=== PATIENT | male | born 1960 | race Caucasian/White ===

== ENCOUNTER 2019-11-21 10:35 | Outpatient (CLI) | payer BC, SELFPAY ==
--- NOTE | 2019-11-21 10:47 | XR_ITS ---
WS: [id number] PROCEDURE: XR chest 2V* [id number] CLINICAL INFORMATION: INFLUENZA VIRUS, PNEUMONIA COMPARISON: FINDINGS: Heart: Cardiomegaly. Lungs: Lungs are clear. No consolidation or pleural fluid. Bones: Normal visualized bony structures. Cholecystectomy clips. XR/XR chest 2V* [id number] IMPRESSION: 1. Stable cardiomegaly. 2. No acute pulmonary infiltrates. 3. No acute chest findings.
== END 2019-11-21 10:36 | disposition home or self-care (01) ==
LOC: RADWPI 10:43
PROVIDERS: Family Provider Family Medicine; PCP Family Medicine; Visit Provider Electrodiagnostic Medicine
DX: J09.X1 Influenza due to identified novel influenza A virus with pneumonia (principal); I51.7 Cardiomegaly
CPT/HCPCS: 71046

== ENCOUNTER 2020-03-18 13:05 | Outpatient (CLI) | payer BC, SELFPAY | END 2020-03-18 13:06 | disposition home or self-care (01) | LOC: WOUND 13:05 | PROVIDERS: Family Provider Family Medicine; PCP Family Medicine; Visit Provider Nurse Practitioner Family | DX: L08.9 Local infection of the skin and subcutaneous tissue, unspecified (principal); L97.512 Non-pressure chronic ulcer of other part of right foot with fat layer exposed | CPT/HCPCS: 11042; 11045; G0463 ==

== ENCOUNTER 2020-03-25 14:03 | Outpatient (CLI) | payer BC, SELFPAY | END 2020-03-25 14:04 | disposition home or self-care (01) | LOC: WOUND 14:04 | PROVIDERS: Family Provider Family Medicine; PCP Family Medicine; Visit Provider Nurse Practitioner Family | DX: L08.9 Local infection of the skin and subcutaneous tissue, unspecified (principal); L97.512 Non-pressure chronic ulcer of other part of right foot with fat layer exposed | CPT/HCPCS: 11042; 11045 ==

== ENCOUNTER 2020-04-01 14:11 | Outpatient (CLI) | payer BC, SELFPAY | END 2020-04-01 14:12 | disposition home or self-care (01) | LOC: WOUND 14:12 | PROVIDERS: Family Provider Family Medicine; PCP Family Medicine; Visit Provider Thoracic Surgery (Cardiothoracic Vascular Surgery) | DX: I96 Gangrene, not elsewhere classified (principal); L97.512 Non-pressure chronic ulcer of other part of right foot with fat layer exposed; L08.9 Local infection of the skin and subcutaneous tissue, unspecified | CPT/HCPCS: 11042; J2001 ==

== ENCOUNTER 2020-04-08 14:54 | Outpatient (CLI) | payer BC, SELFPAY | END 2020-04-08 14:55 | disposition home or self-care (01) | LOC: WOUND 14:57 | PROVIDERS: Family Provider Family Medicine; PCP Family Medicine; Visit Provider Thoracic Surgery (Cardiothoracic Vascular Surgery) | DX: L97.512 Non-pressure chronic ulcer of other part of right foot with fat layer exposed (principal) | CPT/HCPCS: 11042 ==

== ENCOUNTER → 2020-08-13 09:04 | Outpatient (BNVA) | payer BC, SELFPAY | PROVIDERS: Family Provider Family Medicine; PCP Family Medicine; Visit Provider Urology | DX: R97.20 Elevated prostate specific antigen [PSA] (principal); N41.9 Inflammatory disease of prostate, unspecified; N52.9 Male erectile dysfunction, unspecified | CPT/HCPCS: 81001; 84153 ==

== ENCOUNTER → 2020-10-20 09:18 | Outpatient (BNVA) | payer BC, SELFPAY | PROVIDERS: Family Provider Family Medicine; PCP Family Medicine; Visit Provider Urology | DX: K62.89 Other specified diseases of anus and rectum (principal) | CPT/HCPCS: 81003 ==

== ENCOUNTER → 2021-07-08 07:52 | Outpatient (BNVA) | payer OTHER, SELFPAY | PROVIDERS: Family Provider Family Medicine; PCP Family Medicine; Visit Provider Urology | DX: R97.20 Elevated prostate specific antigen [PSA] (principal) | CPT/HCPCS: 81003; 84153 ==

== ENCOUNTER 2021-09-07 13:06 | Outpatient (CLI) | payer OTHER, SELFPAY ==
[2021-09-07 13:26] VITALS: BP 144/91; PULSE 91; RESP 17; TEMP 36.7; O2SAT 94; BMI 31.5
[2021-09-07] MEDS: diphenhydrAMINE 50 mg/mL SDV 1mL IVP (13:38)
--- NOTE | 2021-09-07 13:55 | SUR.PREOP ---
1330-Infusion was started on patient within 2 minutes patient became red and stated he felt hot. Face was flushed and was cold when he came in. Infusion was stopped, and iv flushed. Nurse contacted ER Dr in [place], Dr Barr, explained incident and was advised to give 50mg of Benadryl, wait a bit and restart infusion. If reaction happens again, stop infusion and advise patient he will not be eligible for infusion in future.
--- NOTE | 2021-09-07 13:58 | SUR.PREOP ---
1348-infusion was restarted after administering benadryl. Vitals signs remain the same, patient appears to tolerate infusion well. No redness and states he does not feel any different in any areas. Nurse will continue to monitor closely.
[2021-09-07 14:06] VITALS: BP 133/86; PULSE 77; RESP 17; TEMP 36.7; O2SAT 97
[2021-09-07 15:03] VITALS: BP 129/84; PULSE 77; RESP 17; TEMP 36.7; O2SAT 96
== END 2021-09-07 13:07 | disposition home or self-care (01) ==
LOC: OPS 13:07
PROVIDERS: PCP Family Medicine; Visit Provider Family Medicine
DX: U07.1 COVID-19 (principal)
CPT/HCPCS: 96365; 96375; J1200

== ENCOUNTER → 2022-01-20 11:00 | Outpatient (BNVA) | payer OTHER, SELFPAY | PROVIDERS: PCP Family Medicine; Visit Provider Urology | DX: R97.20 Elevated prostate specific antigen [PSA] (principal) | CPT/HCPCS: 81003; 84153 ==

== ENCOUNTER 2024-02-19 12:17 | Emergency (ER) | payer OTHER, SELFPAY ==
[2024-02-19 12:26] VITALS: BP 142/84; PULSE 58; RESP 16; TEMP 36.4; O2SAT 95; BMI 27.2
--- NOTE | 2024-02-19 12:43 | W.ED.FALL ---
HPI - Fall General: Chief Complaint: Fall Stated Complaint: hand injury, head injury Time Seen by Provider: 02/19/24 12:35 Source: patient Mode of arrival: ambulatory Limitations: no limitations History of Present Illness: Patient is a nice 63-year-old male who presents to ED today for evaluation of a fall injury. Patient states just prior to arrival he accidentally fell off of his tractor. He states he struck his head and sustained a minor abrasion to the left frontal region. No LOC. He has no headache. He is not on anticoagulation. He has no neck or back pain. He states his main complaint is his left wrist that he feels is painful and swollen. He sustained a small laceration to his left fourth finger. Tetanus is up-to-date. He has no other injuries or complaints at this time. He has been ambulatory without difficulty or assistance since the fall. MD complaint: fall Onset (ago): hour(s) Fall from: from height (distance) (4 feet-fell from tractor ) Fall witnessed: no Place fall occurred: home Loss of consciousness: None Prolonged down time: no Symptoms prior to fall: none Context: tripped/slipped Location of injury: head Location of injury - extremities: Left: forearm and hand Severity: moderate Associated symptoms-after fall: Reports no associated symptoms; Denies abdominal pain, chest pain, headache(s), hematuria, lightheadedness or neck pain Review of Systems Eyes: Denies: change in vision, blurry vision, photophobia, eye discharge, floaters or seeing flashes ENMT: Denies: throat pain, odynophagia, ear or mastoid pain, ear discharge, nasal discharge, epistaxis or sinus pain Card: Denies: chest pain, palpitations, lightheadedness, syncope or pre-syncope Resp: Denies: dyspnea or pain on inspiration GI: Denies: abdominal pain : Denies: flank pain or hematuria Musc: Reports: joint pain (L wrist), joint swelling (L wrist) and limited range of motion (L wrist); Denies: neck pain, back pain or extremity pain Skin/Breast: Reports: other (laceration L finger, abrasion L forehead) Neuro: Denies: headache(s), numbness in extremities, weakness in extremities, sensory changes or dizziness [facility] PFSH: Medical History PUD (peptic ulcer disease) HTN (hypertension) TIA (transient ischemic attack) Prostatitis Elevated PSA Erectile dysfunction Surgical History History of extraction of renal calculus Hx of cholecystectomy H/O eye surgery S/P ureteral stent placement Family History Father , at age 95 Hypertension Mother , at age 83 Dementia Social History Smoking and tobacco/nicotine status: never used tobacco/nicotine Alcohol intake: never Substance/Drug Use: unknown Adopted: No Caregiver/support person: No Lives independently: No Household members: spouse Marital status: Current occupational status: retired Physical Exam Const: COMMON NORMALS: no acute distress, average body habitus, patient oriented x3, no limitations, healthy appearing, alert and well nourished GENERAL APPEARANCE: cooperative ORIENTATION/CONSCIOUSNESS: Yes awake, Yes oriented to person, Yes oriented to place and Yes oriented to time HENMT: COMMON NORMALS: normocephalic and TM's normal bilaterally HEAD & SCALP: normal to inspection and normocephalic; no Ryder's sign, no hematoma and no raccoon eyes HEAD IMAGES: 1. minor forehead abrasion; no hematoma FACE & SINUS: normal facial exam TYMPANIC MEMBRANE: TM's normal bilaterally MOUTH: other (no intraoral injuries noted) Eye: COMMON NORMALS: Equal, round and reactive pupils present and EOMs intact bilaterally GENERAL EYE: appearance normal, both eyes and all related structures and normal light reflex PUPIL: Yes Equal, round and reactive pupils present DIRECT OPHTHALMOSCOPY: Yes normal light reflex Neck/C-Spine: COMMON NORMALS: full ROM GENERAL: Yes normal visual inspection CERVICAL SPINE: Yes cervical ROM normal, No pain with cervical ROM, No Cervical spine tenderness, No step off deformity and No Paracervical muscle tenderness Chest: COMMONS NORMALS: normal inspection of the chest and normal palpation of entire chest wall Resp: COMMON NORMALS: normal respiratory effort and clear to auscultation bilaterally AUSCULTATION: clear to auscultation bilaterally Cardio: COMMON NORMALS: regular rate and regular rhythm RATE: regular rate RHYTHM: regular rhythm GI: COMMON NORMALS: Normal to inspection, nondistended, normoactive bowel sounds present, Soft to palpation, non-tender, No hepatosplenomegaly present and no masses INSPECTION: Yes normal to inspection and No abdominal wall ecchymosis AUSCULTATION: Yes normoactive bowel sounds PALPATION: Yes Soft to palpation and Yes No hepatosplenomegaly present Back/Pelvis: COMMON NORMALS: thoracic and lumbar spine normal to inspection, no thoracic nor lumbar tenderness and thoraco-lumbar ROM normal Extremity: GENERAL: Yes normal exam except as noted LEFT UPPER EXTREMITY: Yes wrist (TTP and edema to L distal wrist ) Left wrist: Yes ROM (limited secondary to pain) and Yes neurovascular exam (normal) and Yes hand & digits (laceration overlying palmar L DIP; full ROM) Left hand and digits: Yes ROM (normal) and Yes neurovascular exam (normal) Neuro: ALFONSO COMA SCALE: document GCS findings Alfonso coma scale eye opening: Spontaneous Alfonso coma scale verbal response: Orientated [place] coma scale motor response: Obey commands Alfonso coma scale total score: 15 COMMON NORMALS: patient oriented x3, CN's II-XII intact bilaterally, moves all extremities, no focal motor deficits, no sensory deficits noted and gait normal SENSORIUM/ORIENTATION: Yes alert, Yes oriented to person, Yes oriented to place and Yes oriented to time SPEECH: speech normal GAIT: Yes Normal gait present Skin: COMMON NORMALS: no rashes or lesions noted GENERAL SKIN EXAM: no rashes or lesions noted TRAUMA: abrasion and laceration Procedures Laceration Laceration 1: Site: hand (4th finger) Side (If applicable): left Size (cm): 1.5 Description: linear Depth: simple, single layer Local Anesthetic: lidocaine 2% (digital block) Amount of anesthesia used (mL): 3.0 Pre-repair: wound explored and irrigated extensively Skin layer closed with: nylon Size (cm): 4-0 Number of sutures: 3 Technique: simple, interrupted Course Vital Signs: Vital signs: Vital Signs Temperature 97.6 F 02/19/24 12:26 Pulse Rate 58 L 02/19/24 13:35 Respiratory Rate 18 02/19/24 13:35 Blood Pressure 135/81 02/19/24 13:35 Pulse Oximetry 96 02/19/24 13:35 Oxygen Delivery Me thod Room Air 02/19/24 13:35 MDM - Fall Medical Decision Making Patient's finger laceration was copiously irrigated and repaired as documented. XRs radiology read showing no acute fracture however on personal interpretation I believe he has a nondisplaced fracture to his distal radius. Clinically this would fit. Patient will be splinted and followed up with orthopedics. Tetanus is UTD. Lab Data Radiology Impressions Hand X-Ray 02/19/24 12:52 IMPRESSION: 1. No acute fracture or dislocation. 2. 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 Wrist X-Ray 02/19/24 12:52 IMPRESSION: 1. No acute fracture or dislocation. 2. 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 All radiology interpretation(s) finalized by discharge Discharge Plan Discharge Patient Disposition: Home Clinical Impression: Closed fracture of distal end of left radius Qualifiers: Encounter type: initial encounter Fracture morphology: unspecified fracture morphology Qualified Code(s): S52.502A - Unspecified fracture of the lower end of left radius, initial encounter for closed fracture Laceration of left ring finger Qualifiers: Encounter type: initial encounter Damage to nail status: without damage Foreign body presence: without foreign body Qualified Code(s): S61.215A - Laceration without foreign body of left ring finger without damage to nail, initial encounter Condition: Stable Prescriptions: New tramadol 50 mg tablet 50 mg PO Q6H PRN (Reason: pain) Qty: 14 0RF Discontinued hydrocodone-acetaminophen 5-325 mg tablet 1 tab PO Q4H PRN (Reason: pain) 7 Days Qty: 10 0RF No Action sulfamethoxazole-trimethoprim 800-160 mg tablet 1 tab PO BID Qty: 60 2RF mupirocin 2 % ointment 1 applic topical BID Qty: 22 0RF Rx Instructions: use with bandage changes. pantoprazole 40 mg tablet,delayed release (DR/EC) See Rx Instructions .ROUTE .COMPLEX Qty: 90 3RF Dose Instruction: TAKE 1 TABLET BY MOUTH EVERY DAY FOR STOMACH/ULCER Rx Instructions: TAKE 1 TABLET BY MOUTH EVERY DAY FOR STOMACH/ULCER lisinopril-hydrochlorothiazide 20-25 mg tablet See Rx Instructions .ROUTE .COMPLEX Qty: 90 3RF Dose Instruction: TAKE 1 TABLET BY MOUTH EVERY DAY FOR BLOOD PRESSURE Rx Instructions: TAKE 1 TABLET BY MOUTH EVERY DAY FOR BLOOD PRESSURE sildenafil 100 mg tablet See Rx Instructions .Route .COMPLEX Qty: 20 12RF Rx Instructions: 1/2 TO 1 TAB 1 hour before intercourse, on empty stomach, NO NITROGLYCERIN Discharge Orders: Discharge ED (Routine); Ordered 02/19/24 Ordered By: Donna Gordon Referrals: Andry Weston DO [Primary Care Provider] - Patient Instructions: Care For Your Stitches (ED), Laceration (DC), Wrist Fracture in Adults (ED), Finger Laceration (ED), Opioid Safety, Pain Management Activity Restrictions/Additional Instructions: As we discussed case management should reach out to you this week to help set you up with a follow-up appointment with orthopedics for your wrist fracture. Please stay in your splint at all times until this appointment. Keep wound/laceration clean with warm soap and water twice daily. Monitor for signs of infection such as redness, swelling, increased pain, or drainage. Please seek medical re-evaluation if these occur. If you received sutures today these will need to be removed (unless you were told by the provider that they are absorbable). The provider should have discussed with you the length of time until removal-7 DAYS. Ortho may be able to cut these out as well. Coding Level of Care Code ED [employer]
--- NOTE | 2024-02-19 12:52 | XRR_ITS ---
PROCEDURE INFORMATION: Exam: XR Left Hand Exam date and time: 02/19/2024 12:57 PM Age: 63 years old Clinical indication: Injury or trauma; Fall; Laceration; Hand; Left; Additional info: Fall/trauma; Lac to 4th finger TECHNIQUE: Imaging protocol: Radiologic exam of the left hand. Views: 3 or more views. COMPARISON: CR XR wrist LT min 3V* [id number] 02/19/2024 12:57 PM FINDINGS: Bones/joints: No acute fracture or dislocation. Mineralization is normal. Severe degenerative joint space narrowing, osteophytosis, and subchondral sclerosis at the 1st CMC joint. Milder triscaphe degenerative change. Mild degenerative change scattered throughout the DIP joints. Remaining joints are maintained. Soft tissues: No retained radiopaque foreign body. XR/XR hand LT min 3V* [id number] IMPRESSION: 1. No acute fracture or dislocation. 2. 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
--- NOTE | 2024-02-19 12:52 | XRR_ITS ---
PROCEDURE INFORMATION: Exam: XR Left Wrist Exam date and time: 02/19/2024 12:57 PM Age: 63 years old Clinical indication: Injury or trauma; Fall; Blunt trauma (contusions or hematomas); Wrist; Left; Additional info: Trauma/fall TECHNIQUE: Imaging protocol: Radiologic exam of the left wrist. Views: 3 or more views. COMPARISON: CR XR hand LT min 3V* [id number] 02/19/2024 12:57 PM FINDINGS: Bones/joints: No acute fracture or dislocation. Mineralization is normal. Severe degenerative joint space narrowing, osteophytosis, and subchondral sclerosis at the 1st CMC joint. Milder triscaphe degenerative change. Remaining joints are maintained. Soft tissues: Soft tissue swelling about the wrist. XR/XR wrist LT min 3V* [id number] IMPRESSION: 1. No acute fracture or dislocation. 2. 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
[2024-02-19 13:35] VITALS: BP 135/81; PULSE 58; RESP 18; O2SAT 96
[2024-02-19 14:18] VITALS: PULSE 62; O2SAT 96
--- NOTE | 2024-02-20 07:53 | DCPLANNER ---
Message sent to Ortho- Non-displaced distal radial fx
== END 2024-02-19 14:20 | disposition home or self-care (01) ==
PROVIDERS: Emergency Provider Physician Assistant; PCP Family Medicine
DX: S52.502A Unspecified fracture of the lower end of left radius, initial encounter for closed fracture (principal); S61.215A Laceration without foreign body of left ring finger without damage to nail, initial encounter; I10 Essential (primary) hypertension; Z86.73 Personal history of transient ischemic attack (TIA), and cerebral infarction without residual deficits; V84.4XXA Person injured while boarding or alighting from special agricultural vehicle, initial encounter; S00.81XA Abrasion of other part of head, initial encounter
CPT/HCPCS: 12001; 73110; 73130; 99283

== ENCOUNTER 2024-02-23 06:00 | Outpatient (CLI) | payer OTHER, SELFPAY | END 2024-02-23 23:59 | disposition home or self-care (01) | LOC: SOT 02-26 07:59 | PROVIDERS: PCP Family Medicine; Visit Provider Specialist | DX: Z46.89 Encounter for fitting and adjustment of other specified devices (principal); S52.502D Unspecified fracture of the lower end of left radius, subsequent encounter for closed fracture with routine healing; X58.XXXD Exposure to other specified factors, subsequent encounter | CPT/HCPCS: L3984 ==

== ENCOUNTER → 2024-02-23 10:00 | Outpatient (BNVA) | payer OTHER, SELFPAY | PROVIDERS: PCP Family Medicine; Referring Provider Physician Assistant; Visit Provider Specialist | DX: S52.502A Unspecified fracture of the lower end of left radius, initial encounter for closed fracture (principal); S61.215A Laceration without foreign body of left ring finger without damage to nail, initial encounter; W17.89XA Other fall from one level to another, initial encounter | CPT/HCPCS: 73110 ==

== ENCOUNTER → 2024-03-13 08:35 | Outpatient (BNVA) | payer OTHER, SELFPAY | PROVIDERS: PCP Family Medicine; Visit Provider Specialist | DX: S52.502A Unspecified fracture of the lower end of left radius, initial encounter for closed fracture (principal); T14.8XXA Other injury of unspecified body region, initial encounter; S61.215A Laceration without foreign body of left ring finger without damage to nail, initial encounter; X58.XXXA Exposure to other specified factors, initial encounter; Z79.899 Other long term (current) drug therapy | CPT/HCPCS: 73110; 73130 ==

== ENCOUNTER → 2024-04-08 15:22 | Outpatient (BNVA) | payer OTHER, SELFPAY | PROVIDERS: PCP Family Medicine; Visit Provider Specialist | DX: S52.502A Unspecified fracture of the lower end of left radius, initial encounter for closed fracture (principal); X58.XXXA Exposure to other specified factors, initial encounter | CPT/HCPCS: 73130 ==